=== PATIENT | female | born 1945 | race Caucasian/White ===

== ENCOUNTER 2024-10-25 14:04 | Emergency (ER) | payer OTHER, SELFPAY ==
[2024-10-25 14:17] VITALS: BP 164/80; PULSE 85; RESP 16; TEMP 36.9; O2SAT 99; BMI 20.7
--- NOTE | 2024-10-25 14:28 | DI.RAD.S_ITS ---
PROCEDURE: XR CHEST 2V INDICATIONS: Fall, pain with inspiration TECHNIQUE: 2 views of the chest were acquired. COMPARISON: None. FINDINGS: Surgical changes and devices: None. Lungs and pleura: Lungs are clear. No pleural effusions or pneumothorax. Mediastinum: Mediastinal contours are normal. Heart size is normal. Bones and chest wall: No suspicious bony abnormalities. Soft tissues appear unremarkable. IMPRESSION: No acute cardiopulmonary abnormality is seen. Dictated by: Kaushal Ron M.D. on 10/25/2024 at 15:05 Approved by: Kaushal Ron M.D. on 10/25/2024 at 15:06
--- NOTE | 2024-10-25 14:28 | DI.RAD.S_ITS ---
PROCEDURE: XR SHOULDER RT MIN 2V INDICATIONS: Fall, R shoulder pain TECHNIQUE: 3 views of the shoulder were acquired. COMPARISON: [facility], [place], XR CHEST 2V, 10/25/2024, 14:39. FINDINGS: Bones: No fractures or dislocations but quality of visualization of the humeral head is somewhat limited by presence of large projecting osteophytes along the humeral articular margin. No suspicious bony lesions. Visualized ribs appear intact. Soft tissues: No suspicious soft tissue calcifications. IMPRESSION: Degenerative osteoarthritic change with large projecting osteophytes along the humeral articular margin but no fracture found. Dictated by: Kaushal Ron M.D. on 10/25/2024 at 15:06 Approved by: Kaushal Ron M.D. on 10/25/2024 at 15:07
--- NOTE | 2024-10-25 15:38 | ED.FALL ---
HPI - Fall <Cristina Toth PA-C - Last Filed: 10/25/24 19:48> General Chief Complaint: Fall Stated Complaint: fall yesterday back/shoulder pain Time Seen by Provider: 10/25/24 14:55 Source: patient Mode of arrival: Family Vehicle History of Present Illness HPI Narrative: Ms. Velez is a very pleasant 79-year-old female with a past medical history of muscular dystrophy, hypertension, arthritis presents to the emergency department for right shoulder and chest wall pain after a fall that occurred last night. Patient states last night while with family she was sitting for a long time. When she went to stand and she began walking she started to fall backwards and landed gently on the floor. Patient uses bilateral walking poles and states that she has a very hard time walking because of her muscular dystrophy and she ?knows better? than to sit for a long time as it often results in a fall. Patient had a fall few days prior to last night as well. She describes falling gently backwards landing on her behind and then her right shoulder. Patient reports chronic right shoulder pain that is now worse and also pain on the right anterior lateral chest wall below the right breast. States this pain on the chest wall is worse with a deep breath and worse with palpation. She denies head trauma, LOC. She denies any dizziness, lightheadedness, chest pain, shortness of breath or other symptoms precipitating the fall. Denies head trauma, loss of consciousness, nausea or vomiting after the event. Patient has not taken any pain medications prior to arrival. Denies neck pain, back pain, leg pain, wrist pain, left shoulder pain. Related Data Previous Rx's Medication Instructions Recorded hydrocodone 5 mg-acetaminophen 325 1 tab PO Q8H PRN pain #10 tabs 10/25/24 mg tablet Allergies Allergy/AdvReac Type Severity Reaction Status Date / Time regadenoson AdvReac Severe Chest Pain Verified 10/25/24 14:34 amoxicillin AdvReac Verified 10/25/24 14:34 Review of Systems <Cristina Toth PA-C - Last Filed: 10/25/24 19:48> Review of Systems ROS Unobtainable: All systems reviewed & are unremarkable except as noted in HPI and below Exam <Cristina Toth PA-C - Last Filed: 10/25/24 19:48> Narrative Exam Narrative: GENERAL: 79 year old patient appears stated age. Well-developed patient, in no acute distress. Sitting in wheelchair. HEAD: Atraumatic. Normocephalic. EYES: Extraocular motions intact. No scleral icterus. No injection or drainage. ENT: Nose without bleeding, purulent drainage. Throat without erythema, tonsillar hypertrophy or exudate. Airway patent. NECK: Trachea midline. Cervical ROM intact. CARDIOVASCULAR: Regular rate and rhythm. Point tenderness below right breast on anterolateral ribcage with no overlying brusin gor crepitus. RESPIRATORY: ?Nonlabored respirations. ?Speaking in clear, full sentences. ?Clear to auscultation. Breath sounds equal bilaterally. No wheezes, rales, or rhonchi. ? GASTROINTESTINAL: Abdomen soft, non-tender, nondistended. No brusing. EXTREMITIES: No edema or joint tenderness. BACK: Nontender without deformity or crepitance. No flank tenderness. NEURO: AOx3. ?Clear speech. ?SITLT thoughout upper and lower extremities. SKIN: Mild ecchymosis on right anterior knee. Initial Vital Signs Initial Vital Signs: Vital Signs Temperature 98.5 F 10/25/24 14:17 Pulse Rate 85 10/25/24 14:17 Respiratory Rate 16 10/25/24 14:17 Blood Pressure 164/80 H 10/25/24 14:17 Pulse Oximetry 99 10/25/24 14:17 Oxygen Delivery Method Room Air 10/25/24 14:17 <Wenceslao Shay MD - Last Filed: 10/25/24 20:36> Initial Vital Signs Initial Vital Signs: Vital Signs Temperature 98.5 F 10/25/24 14:17 Pulse Rate 85 10/25/24 14:17 Respiratory Rate 16 10/25/24 14:17 Blood Pressure 164/80 H 10/25/24 14:17 Pulse Oximetry 99 10/25/24 14:17 Oxygen Delivery Method Room Air 10/25/24 14:17 Course <Cristina Toth PA-C - Last Filed: 10/25/24 19:48> Orders Ordered: ED Orders 10/25/24 14:28 XR chest 2V Stat XR shoulder RT min 2V Stat Discontinued Medications Acetaminophen (Acetaminophen 325 Mg Tablet) 650 mg PO NOW ONE Stop: 10/25/24 16:08 Last Admin: 10/25/24 16:12 Dose: 650 mg Documented By: SHEREE Ibuprofen (Ibuprofen 400 Mg Tablet) 400 mg PO NOW ONE Stop: 10/25/24 16:08 Last Admin: 10/25/24 16:11 Dose: 400 mg Documented By: SHEREE Vital Signs Vital signs: Vital Signs - 8 hr 10/25/24 14:17 10/25/24 16:51 Temperature 98.5 F Pulse Rate 85 85 Respiratory Rate 16 20 Blood Pressure 164/80 H 159/77 H Pulse Oximetry 99 99 Oxygen Delivery Method Room Air <Wenceslao Shay MD - Last Filed: 10/25/24 20:36> Orders Ordered: ED Orders 10/25/24 14:28 XR chest 2V Stat XR shoulder RT min 2V Stat Discontinued Medications Acetaminophen (Acetaminophen 325 Mg Tablet) 650 mg PO NOW ONE Stop: 10/25/24 16:08 Last Admin: 10/25/24 16:12 Dose: 650 mg Documented By: SHEREE Ibuprofen (Ibuprofen 400 Mg Tablet) 400 mg PO NOW ONE Stop: 10/25/24 16:08 Last Admin: 10/25/24 16:11 Dose: 400 mg Documented By: SHEREE Vital Signs Vital signs: Vital Signs - 8 hr 10/25/24 14:17 10/25/24 16:51 Temperature 98.5 F Pulse Rate 85 85 Respiratory Rate 16 20 Blood Pressure 164/80 H 159/77 H Pulse Oximetry 99 99 Oxygen Delivery Method Room Air MDM - Fall <Cristina Toth PA-C - Last Filed: 10/25/24 19:48> Imaging Data Chest x-ray: Radiologist's Impression: PROCEDURE: XR CHEST 2V INDICATIONS: Fall, pain with inspiration TECHNIQUE: 2 views of the chest were acquired. COMPARISON: None. FINDINGS: Surgical changes and devices: None. Lungs and pleura: Lungs are clear. No pleural effusions or pneumothorax. Mediastinum: Mediastinal contours are normal. Heart size is normal. Bones and chest wall: No suspicious bony abnormalities. Soft tissues appear unremarkable. IMPRESSION: No acute cardiopulmonary abnormality is seen. Right Shoulder X-Ray: Radiologist's Impression: PROCEDURE: XR SHOULDER RT MIN 2V INDICATIONS: Fall, R shoulder pain TECHNIQUE: 3 views of the shoulder were acquired. COMPARISON: [facility], XR CHEST 2V, 10/25/2024, 14:39. FINDINGS: Bones: No fractures or dislocations but quality of visualization of the humeral head is somewhat limited by presence of large projecting osteophytes along the humeral articular margin. No suspicious bony lesions. Visualized ribs appear intact. Soft tissues: No suspicious soft tissue calcifications. IMPRESSION: Degenerative osteoarthritic change with large projecting osteophytes along the humeral articular margin but no fracture found. MDM Narrative Medical decision making narrative: 79-year-old female with a past medical history of muscular dystrophy presents to the emergency department for evaluation after a fall that occurred last night. Differential diagnosis includes but is not limited to rib fracture, rib contusion, right shoulder fracture, strain, etc. On exam the patient is in no acute distress, nontoxic-appearing. She reports that she has ambulated since the fall however due to her muscular dystrophy she is using a wheelchair today. She reports acute on chronic right shoulder pain but states that the shoulder needs to be replaced and she has very limited range of motion at baseline. She does have point tenderness on the anterolateral right ribcage with no overlying crepitus or bruising. Breath sounds equal and bilateral. After extensive discussion with the patient, we will start with ibuprofen and Tylenol with pain and then proceed with stronger medications if needed. Chest x-ray reveals no pneumothorax, no acute cardiopulmonary abnormality or displaced rib fracture. Right shoulder x-ray reveals degenerative osteoarthritic change but no fracture. The patient was provided with incentive spirometer to encourage deep breaths and was also prescribed a short course of hydrocodone-acetaminophen. Risks of narcotic pain medications were discussed with the patient. I also recommended non opioid consisting of ibuprofen and Tylenol. Advised patient to follow up with her PCP for repeat evaluation within the next 2-3 days. Strict ER return precautions discussed. Patient is feeling much better and is agreeable to plan, stable for discharge. Discharge Plan Departure Patient Disposition: Home Clinical Impression: Rib pain on right side Fall Qualifiers: Encounter type: initial encounter Qualified Code(s): W19.XXXA - Unspecified fall, initial encounter Instructions: DI for Shoulder Pain Activity Restrictions/Additional Instructions: Please take Ibuprofen (Motrin/Advil) or Acetaminophen (Tylenol) for pain. These are available over the counter. You may take Ibuprofen 600 mg every 8 hours with food for pain. You may also take Acetaminophen 650 mg every 4-6 hours for pain. Do not exceed 3000 mg of Tylenol a day as this can cause liver damage. Do not drink alcohol with either of these medications. Please follow up with your primary care doctor within the next 2-3 days for ER follow-up. Please use your incentive spirometer multiple times a day to encourage deep breaths. (If you do not have a PCP you can call [phone]. ?to schedule an appointment with an [facility] Primary Care Provider) IF YOU DEVELOP ANY NEW OR WORSENING SYMPTOMS, RETURN TO THE ER! Please read the attached instructions, they highlight more specific treatments and interventions for you at home. Thank you for letting me participate in your care, Cristina Toth PA-C You have been prescribed a short course of narcotic medications. These are potentially dangerous and addictive medications that should be used carefully. While on these medications you cannot drive or operate heavy machinery. Additionally, you cannot sign legal documents or perform any duties such as this. 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 Please understand that we cannot provide further refills of narcotics or controlled substances through the ED and your pain management will need to be through your Primary Care Provider Prescriptions: New hydrocodone-acetaminophen 5-325 mg tablet 1 tab PO Q8H PRN (Reason: pain) Qty: 10 0RF Stand Alone Forms: Patient Portal/API/Survey ED Sign-out <Wenceslao Shay MD - Last Filed: 10/25/24 20:36> Cosign ED Attending Pedro Attestation: I was immediately available in the department for consultation. This documentation has been reviewed and I agree with assessment and plan. Supervised by Wenceslao Shay MD
[2024-10-25] MEDS: IBUPROFEN 400 MG TABLET PO (16:11)
[2024-10-25] MEDS: ACETAMINOPHEN 325 MG TABLET 650 MG PO (16:12)
[2024-10-25 16:51] VITALS: BP 159/77; PULSE 85; RESP 20; O2SAT 99
== END 2024-10-25 17:37 | disposition home or self-care (01) ==
PROVIDERS: Emergency Provider Physician Assistant
DX: R07.81 Pleurodynia (principal); M25.511 Pain in right shoulder; W18.30XA Fall on same level, unspecified, initial encounter
CPT/HCPCS: 71046; 73030; 99283